=== PATIENT | female | born 1950 | race African-American/Black ===

== ENCOUNTER 2018-11-03 16:16 | Emergency (ER) | payer MEDICARE, OTHER ==
[~2018-11-03] VITALS: Ht 152.4 cm; Wt 130.0 kg
[~2018-11-03 16:16] MED LIST: DAPA5TAB PO; INSU100I7 SQ; LEVVL SQ; LOSA100T32 PO; PREG50CA PO
[2018-11-03 18:17] LABS: HEMOGLOBIN. 12.7 g/dL (12.0-16.0); LYMPHOCYTES % 24.1 % (20.0-50.0); MEAN CORPUSCULAR HEMOGLOBIN 28.1 pg (28.0-32.0); MEAN CORPUSCULAR VOLUME 83.9 fL (81.0-99.0); MEAN PLATELET VOLUME 8.7 fl (7.4-10.4); MONOCYTES % 8.7 % (2.0-8.0); NEUTROPHILS % 65.2 % (40.0-76.0); PLATELET 247 x1000/uL (130-400); RED BLOOD CELL COUNT 4.53 mill/uL (4.2-5.4); RED CELL DISTRIBUTION WIDTH 15.3 % (11.6-14.6)
[2018-11-03 18:23] LABS: CHLORIDE 105 mEq/L (98-107); PROTHROMBIN TIME 10.4 sec (9.6-11.0)
[2018-11-03 21:19] VITALS: BP 133/66
== END 2018-11-03 21:22 | disposition home or self-care (01) ==
LOC: ER 16:16
DX: R60.0 Localized edema (principal); E11.649 Type 2 diabetes mellitus with hypoglycemia without coma; I10 Essential (primary) hypertension; M19.90 Unspecified osteoarthritis, unspecified site; Z79.4 Long term (current) use of insulin
CPT/HCPCS: 36415; 71045; 82962; 83880; 93005; 93970; 99284